=== PATIENT | female | born 1985 | race Hispanic/Latino ===

== ENCOUNTER 2019-07-15 15:51 | Emergency (ER) | payer BC ==
[2019-07-15 16:10] VITALS: BP 147/87
--- NOTE | 2019-07-15 16:10 | Event Note ---
ED Screening Note ED Screening Note: states she was hit in the face by a 5 lb toy that occurred a week ago no LOC no fall states she had LORD and sensitivity to light occasional blurriness, no blurry vision now no vomiting no fever went to workers comp no numbness or weakness
--- NOTE | 2019-07-15 16:16 | Emergency Department Report ---
Chief Complaint: Head Injury Stated Complaint: CONSISTANT HEADACHE/DIZZY Time Seen by Provider: 07/15/19 16:09 - HPI History of Present Illness: pt is a 33 yo female who states she was hit in the face by a 5 lb toy that occurred a week ago no LOC no fall to the ground can recall all events states she had LORD and sensitivity to light occasional blurriness, no blurry vision now no vomiting no fever no numbness or weakness went to [facility] due to this occurring while she was at work a week ago states that [facility] is referring her to a neurologist but she has not yet followed up yet because they are trying to find one for her to go to [facility] on exam no acute distress eyes: normal appearance, EOMI, PERRL, no periorbital tenderness or ecchymosis, no racoon eyes no valentine signs normal finger to nose, normal heel to espinoza, equal hospital aide strength, 5/5 strength in the BUE/BLE, sensation intact throughout, normal gait, CN II-XII intact, normal tandem walking, no focal neuro deficit Patient is presenting with possible postconcussion headaches Patient needs referral to neurologist Patient will be referred to a neurologist for further evaluation and medical management pt has a non medical emergency at this time Patient's [place] CT head rule is 0, no emergency CT head imaging required at this time advised pt may take tylenol over the counter. follow up with a neurologist in the next 2-3 days. return to the emergency room for any new or worsening symp toms. - Exam Vital Signs: Vital Signs 07/15/19 16:09 Temperature 98.0 F Pulse Rate 64 Respiratory 16 Rate Blood Pressure 147/87 O2 Sat by Pulse 94 Oximetry MSE screening note: Focused history and physical exam performed. ED Disposition for MSE Clinical Impression: Post-concussion headache Disposition: Z-07 MED SCREENING EXAM-LEFT Is pt being admited?: No Does the pt Need Aspirin: No Condition: Stable Instructions: Post Concussion Syndrome (ED) Additional Instructions: may take tylenol over the counter. follow up with a neurologist in the next 2-3 days. return to the emergency room for any new or worsening symptoms. Referrals: SIMA MARTINEZ MD [Referring] - 2-3 Days BRICE KEENAN MD [Referring] - 2-3 Days DEACON THOMPSON MD [Staff Physician] - 2-3 Days Time of Disposition: 16:19 Print Language: CROATIAN
== END 2019-07-15 17:34 | disposition left against medical advice (07) ==
LOC: ED 15:51
DX: R51 Headache (principal); H53.149 Visual discomfort, unspecified
CPT/HCPCS: 99282